=== PATIENT | female | born 2000 | race African-American/Black ===

== ENCOUNTER 2019-01-18 19:40 | Observation (INO) ==
--- NOTE | 2019-01-18 19:52 | PROVIDER DOCUMENTATION ---
HPI-Female /OB/Breast - General Chief Complaint: OB-Active Labor Stated Complaint: 36 WKS SPOTTING/LEAKING Time Seen by Provider: 01/18/19 19:48 Source: reports: patient Allergies/Adverse Reactions: Patient Allergies Allergy/AdvReac Type Severity Reaction Status Date / Time No Known Allergies Allergy Verified 01/15/19 13:53 Home Medications: Home Medication List Medication Instructions Recorded Confirmed Last Taken Type Pnv Cmb#95/Ferrous Fumarate/FA 1 ea PO DAILY 12/20/18 01/15/19 12/19/18 07:00 History [ Tablet] - History of Present Illness-Female /OB Nature of Presenting Problem: Patient is a 18 year old black female, , currently 37 weeks with uterine contractions every 5 minutes and reported SROM- worsening since last night. Does patient report she is ?: Yes Location of complaint: reports: other (uterine) Radiation: reports: none Quality of Pain: reports: cramping Onset/Duration: reports: last night Timing: reports: still present, getting worse Context/Activities at Onset: reports: none Vaginal Symptoms: reports: other (SROM) Vaginal Bleeding Amount: None Leakage of Fluid: mild Review of Systems - Adult - REVIEW OF SYSTEMS - ADULT Constitutional: reports: no symptoms reported Eyes: reports: no symptoms reported Ears, Nose, Mouth & Throat: reports: no symptoms reported Cardiovascular: reports: no symptoms reported Respiratory: reports: no symptoms reported Gastrointestinal: reports: abdominal pain Genitourinary: reports: see HPI Musculoskeletal: reports: no symptoms reported Integumentary: reports: no symptoms reported Neurological: reports: no symptoms reported Psychiatric: reports: no symptoms reported Endocrine: reports: no symptoms reported Hematologic/Lymphatic: reports: no symptoms reported Allergic/Immunologic: reports: no symptoms reported All Other Systems: Reviewed and Negative Past History - Adult - PAST MEDICAL HISTORY-ADULT Review of Records: reports: Old Records Reviewed, Nursing Assessment Review, Medications Reviewed, Social history reviewed & non-contributory. Major Childhood Illnesses: reports: denies history Cardiovascular: reports: denies history Respiratory: reports: denies history Gastrointestinal: reports: denies history Obstetrical/Gynecological: reports: denies history Genitourinary: reports: denies history Musculoskeletal: reports: denies history, other Neurological: reports: denies history Psychiatric: reports: denies history Endocrine/Immune: reports: anemia, thyroid disorder Sickle Cell Genotype:: Other (anemia) Other Conditions: reports: denies history - PRIOR SURGERIES/PROCEDURES Surgical/Procedure History: reports: none - IMMUNIZATION STATUS Childhood Immunizations: See Nurse Assessment Flu Vaccine: See Nurse Assessment - FAMILY HISTORY Family History: reviewed, not pertinent Physical Exam-General - CONSTITUTIONAL General Appearance: alert, no apparent distress - EYES Eyes: other (clear) - HEAD, EARS, NOSE, MOUTH & THROAT HENMT: moist mucous membranes - NECK Neck: supple - RESPIRATORY Respiratory: no respiratory distress - GASTROINTESTINAL (ABDOMEN) Abdominal Exam: other (gravid uterus with active contractions) - LYMPHATIC Lymphatic: no adenopathy - MUSCULOSKELETAL Back Exam: normal inspection Extremity: normal range of motion, non-tender - SKIN Integumentary: normal color, normal turgor Progress - PLAN OF CARE/RESULTS Progress/Plan/Lab Results: Vital Signs - 8 hr 01/18/19 19:44 Temperature 98.4 F Pulse Rate 114 H Respiratory Rate 20 Blood Pressure 131/94 O2 Sat by Pulse Oximetry 98 Departure - Departure Date of Disposition Decision: 01/18/19 Time of Disposition Decision: 19:52 DIAGNOSIS: Active labor at term Disposition: ADMITTED INPATIENT Certified Medical Emergency: Emergent Condition: Stable Additional Freetext Instructions: go directly to L&D without delay Referrals and Follow-Ups: Maryjo Edwards III, MD [Primary Care Provider] - - Critical Care Note This patient required my direct & personal management of CC.: No Attestation - Physician/ MISBAH Attestation Patient care was provided by Advanced Practice Provider:: No The physician spent face to face time with patient:: Yes Advanced Practice Provider documentation review:: Supervising physician onsite and consulted in the evaluation and care of this patient. The physician did have a face to face encounter with the patient.
[2019-01-18 20:39] LABS: URINE SOURCE VOIDED
[2019-01-18 20:47] LABS: BILIRUBIN URINE NEGATIVE (NEGATIVE); BLOOD URINE NEGATIVE (NEGATIVE); CLARITY CLEAR (CLEAR); COLOR YELLOW; KETONE URINE TRACE mg/dL (NEGATIVE); LEUKOCYTES URINE TRACE (NEGATIVE); NITRITE URINE NEGATIVE (NEGATIVE); PH URINE 6.5; PROTEIN URINE TRACE mg/dL (NEGATIVE); UROBILINOGEN URINE 4 mg/dL
[2019-01-18 20:56] LABS: UR AMPHETAMINES QUAL NONE DETECTED (NONE DETECT); UR BARBITUATES QUAL NONE DETECTED (NONE DETECT); UR BENZODIAZEPIN QUAL NONE DETECTED (NONE DETECT); UR CANNABINOIDS QUAL NONE DETECTED (NONE DETECT); UR COCAINE QUAL NONE DETECTED (NONE DETECT); UR METHADONE QUAL NONE DETECTED (NONE DETECT); UR METHAMPHETAMINE QUAL NONE DETECTED (NONE DETECT); UR OPIATES QUAL NONE DETECTED (NONE DETECT); UR OXYCODONE QUAL NONE DETECTED (NONE DETECT); UR PCP QUAL NONE DETECTED (NONE DETECT); UR PROPOXYPHENE QUAL NONE DETECTED (NONE DETECT); UR TCA QUAL NONE DETECTED (NONE DETECT)
[2019-01-18 22:02] VITALS: BP 113/73
== END 2019-01-18 21:52 | disposition home or self-care (01) ==
LOC: P.LD 19:40 → P.ED 19:40 → P.LD 19:50
PROVIDERS: ADMIT Obstetrics & Gynecology; ATTEND Obstetrics & Gynecology